=== PATIENT | male | born 1975 | race Caucasian/White ===

== ENCOUNTER → 2019-08-21 | Outpatient (CLI) | payer BC ==
--- NOTE | 2019-08-21 16:40 | Diagnostic Imaging Report ---
EXAMINATION: Magnetic resonance imaging of the left knee without intravenous contrast DATE: August 21, 2019. COMPARISON: None. INDICATION: 44-year-old male, left knee pain. TECHNIQUE: Multiplanar, multisequence non contrast enhanced MR imaging was accomplished. FINDINGS: MENISCI: There is signal in the medial meniscus not meeting strict MRI criteria for diagnosis of tear. The lateral meniscus is intact. LIGAMENTS AND TENDONS: The anterior and posterior cruciate ligaments are intact. The medial collateral ligament is intact. The iliotibial band, mid third lateral capsular ligament, fibular collateral ligament, biceps femoris tendon and conjoined tendon are intact. There is degenerative-type enthesopathy at the distal quadriceps tendon insertion. The distal quadriceps tendon and patellar tendon are intact. JOINT: The articular cartilage surfaces are intact. There is no knee joint effusion, prominent synovitis, or intra-articular body. BONE: There is unremarkable bone marrow signal. Specifically, negative for fracture, osteomyelitis, osteonecrosis, or marrow replacing process. BURSAE AND SOFT TISSUES: There is no Bakers cyst. There is fluid in the popliteus tendon sheath. IMPRESSION: 1. Negative for meniscal tear. 2. Intact anterior and posterior cruciate ligaments. Additional ligaments and tendons are intact. 3. Intact articular cartilage. No knee joint effusion. 4. No acute fracture, bone contusion, or evidence of stress reaction. Dictated by: Dictated on workstation # [id number]
== END ==
LOC: RAD 15:27
PROVIDERS: ATTEND Orthopaedic Surgery
DX: M25.562 Pain in left knee (principal)
CPT/HCPCS: 73721

== ENCOUNTER → 2021-05-28 | Outpatient (CLI) | payer BC ==
--- NOTE | 2021-05-28 12:48 | Diagnostic Imaging Report ---
PROCEDURE: US right lower extremity venous. TECHNIQUE: Multiple real-time grayscale images were obtained over the right lower extremity in various projections. Additional spectral analysis and color Doppler duplex images were also obtained. INDICATION: Right lower extremity pain and swelling. FINDINGS: There is no evidence of right lower extremity DVT. Right lower extremity deep venous system shows normal compressibility with normal response to augmentation and Valsalva. No fluid collection or mass is detected. IMPRESSION: No evidence of right lower extremity DVT. Dictated by: Dictated on workstation # [id number]
== END ==
LOC: RAD 10:15
PROVIDERS: ATTEND Nurse Practitioner Family
DX: M79.89 Other specified soft tissue disorders (principal); M79.604 Pain in right leg; Z86.718 Personal history of other venous thrombosis and embolism

== ENCOUNTER → 2021-07-23 | Outpatient (CLI) | payer BC ==
--- NOTE | 2021-07-23 16:48 | Diagnostic Imaging Report ---
INDICATION: Running injury, pain along the back of the heel in the region of the Achilles tendon. EXAMINATION: Right lower extremity MRI without contrast on 07/23/2021. FINDINGS: The Achilles tendon appears intact. There is a focal spur along the posterior aspect of the calcaneus. There is minimal fluid within the retrocalcaneal bursa, perhaps due to mild bursitis. The plantar fascia appears unremarkable. The peroneal tendons are intact. The flexor and extensor tendons are intact. There is a small amount of fluid along the course of the posterior tibial tendon and the flexor hallucis longus tendon which could be normal for this patient with a mild tenosynovitis not excluded. Correlate with symptoms. The anterior talofibular ligament is intact. The posterior talofibular ligament is intact. The anterior and posterior inferior tibiofibular ligaments are intact. The deltoid ligament is intact. The calcaneofibular ligament appears intact. The osseous structures demonstrate no acute abnormalities. The talar dome appears unremarkable. IMPRESSION: 1. Spurring along the posterior aspect of the calcaneus with no abnormality in the adjacent Achilles tendon. There may be mild bursitis of the retrocalcaneal bursa. 2. Ligaments are intact. 3. Minimal fluid along the course of the posterior tibial tendon and flexor hallucis longus tendon which could be within normal limits for patient versus mild tenosynovitis. Correlate with patient's symptoms. Dictated by: Dictated on workstation # [id number]
== END ==
LOC: RAD 08:45
PROVIDERS: ATTEND Orthopaedic Surgery
DX: M77.31 Calcaneal spur, right foot (principal); M76.61 Achilles tendinitis, right leg
CPT/HCPCS: 73721

== ENCOUNTER → 2022-04-15 | Outpatient (CLI) | payer BC ==
--- NOTE | 2022-04-15 14:29 | Diagnostic Imaging Report ---
INDICATION: Left upper extremity radiculopathy. FINDINGS: There is a degenerative retrolisthesis of C5 on 6. Straightening of the cervical lordosis. Alignment is otherwise normal. Vertebral body heights are maintained. There are no findings of abnormal thickening of the prevertebral soft tissues. There is no widening of the predental space. The odontoid view demonstrates normal relationships. There is disc space height loss with endplate spurring at C5-C6. Remaining disc spaces appear preserved. IMPRESSION: 1. Cervical degenerative disc disease at C5-C6 with endplate spurring, disc space height loss and a resultant retrolisthesis. Alignment is otherwise normal. Vertebral body heights are well-maintained. Dictated by: Dictated on workstation # [id number]
== END ==
LOC: RAD 11:02
PROVIDERS: ATTEND Family Medicine
DX: M50.122 Cervical disc disorder at C5-C6 level with radiculopathy (principal); M43.12 Spondylolisthesis, cervical region
CPT/HCPCS: 72040

== ENCOUNTER → 2022-04-17 | Outpatient (CLI) | payer BC ==
--- NOTE | 2022-04-17 12:15 | Diagnostic Imaging Report ---
CLINICAL INDICATION: Patient has right hand and arm tingling. EXAM: MRI of the cervical spine without contrast. Sequences include sagittal T2, sagittal T1, sagittal T2 fat-sat, and axial T2. COMPARISON: X-ray of the cervical spine dated 04/15/2022. FINDINGS: There is no acute cervical spine fracture. There is reversal of cervical lordosis. There is no significant Modic degenerative signal changes. Limited visualization of posterior fossa is unremarkable. There is localized deformity of the cervical cord seen at the C5-C6 level with no definite cord signal abnormality seen. There is no significant paraspinal soft tissue abnormality. C1-C2: There are degenerative spurs involving the atlantoodontoid interval anteriorly. There is no significant central canal narrowing. C2-C3: Unremarkable. C3-C4: There is a small anterior disk herniation. There are bilateral uncinate spurs with the right side worse than left. There is no significant posterior disk bulge. There is moderate right neural foramen narrowing and mild left neural foramen narrowing. There is no significant central canal stenosis. C4-C5: There is a small moderate size anterior disk herniation with spurs. There is no significant posterior disk bulge. There is no significant central spinal canal or neural foramen narrowing. C5-C6: There is grade 1 retrolisthesis C5 on C6. There is a diffuse disk bulge with moderate loss of disk space height. There are hypertrophic disk spurs posteriorly with superimposed left paracentral disk herniation. There are hypertrophic bilateral uncinate spurs with the left side more the right. There is severe central canal stenosis. There is severe left neural foramen narrowing and moderate to severe right neural foramen narrowing. C6-C7: There is no significant central canal or neural foramen narrowing. C7-T1: There is no significant central canal or neural foramen narrowing. IMPRESSION: 1: There is multilevel cervical spine degenerative disease which is worse at the C5-C6 level. 2: There is C5-C6 diffuse disk bulge with hypertrophic disk spurs and uncinate spurs. There is severe central canal stenosis with localized deformity of the cord. There is no definite cord signal abnormality. There is severe left neural foramen narrowing and moderate to severe right neural foramen narrowing. Dictated by: Dictated on workstation # [id number]
== END ==
LOC: RAD 08:11
PROVIDERS: ATTEND Family Medicine
DX: M48.02 Spinal stenosis, cervical region (principal); M46.02 Spinal enthesopathy, cervical region; M47.812 Spondylosis without myelopathy or radiculopathy, cervical region; M50.222 Other cervical disc displacement at C5-C6 level
CPT/HCPCS: 72141

== ENCOUNTER 2022-12-16 06:03 | Outpatient (CLI) | payer BC ==
[~2022-12-16] VITALS: Ht 175.3 cm; Wt 68.0 kg
[2022-12-16] MEDS ORDERED: ENLP2.5T PO (10:36)
[2022-12-16] MEDS ORDERED: AMLO2.5T2 PO (10:36)
== END 2022-12-16 10:41 | disposition home or self-care (01) ==
LOC: PREOP 06:03
PROVIDERS: ATTEND Internal Medicine
DX: Z01.818 Encounter for other preprocedural examination (principal)

== ENCOUNTER 2022-12-25 07:58 | Day surgery (SDC) | payer BC ==
--- NOTE | 2022-12-15 09:14 | HISTORY AND PHYSICAL ---
COLONOSCOPY HISTORY AND PHYSICAL HISTORY OF PRESENT ILLNESS: The patient is a 47-year-old white male referred by Dr. Swann for his first screening colonoscopy. He reports intermittently he will have some small volume bright red blood per rectum that is painless that he has attributed to hemorrhoids. He denies bowel habit change. Denies change in weight, abdominal pain. There is family history for colon cancer and one aunt diagnosed in her 70s, which was the cause of her . She also has a history of breast cancer. His mother is 80 and has no health problems. Father is in fpc secondary to dementia at the age of 80 and reports he has never had a colonoscopy. PAST MEDICAL HISTORY: Significant for hypertension for which he takes amlodipine and enalapril 2.5 mg and 20 mg respectively. He has past history of thalassemia minor that was discovered after an episode of rhabdomyolysis in 2009, felt to be due likely to a very strenuous workouts. There was no reported chronic kidney problems following this. SOCIAL HISTORY: No past smoking history. Occasional small volume alcohol intake and he works in the [employer]. PHYSICAL EXAMINATION: GENERAL: Reveals a fit-appearing white male in no acute distress. VITAL SIGNS: Blood pressure was 120/78. HEENT: Unremarkable. Sclerae nonicteric. CHEST: Clear. CARDIOVASCULAR: Reveals regular rate and rhythm without murmur, S3, or S4. ABDOMEN: Soft, supple without mass, organomegaly, or tenderness. EXTREMITIES: Revealed no cyanosis, clubbing or edema. ASSESSMENT: The patient is being set up for his first screening colonoscopy. There is a positive family history for colon cancer in a case being an aunt diagnosed in her 70s. We will see whether or not the patient actually does have evidence for hemorrhoids at the time of the procedure considering history of intermittent painless bright red blood per rectum. I thank you for the referral of this pleasant gentleman. Electronic medical record was reviewed. Prep instructions were given and questions were answered. Job ID: [id number] DocumentID: [id number] Dictated Date: 12/14/2022 12:00:13 Semiconductor Processing Technician Date: 12/14/2022 12:45:00 Dictated By: NIKA CHOW MD
[~2022-12-25] VITALS: Ht 175 cm; Wt 68.0 kg
[~2022-12-25 07:58] MED LIST: AMLO2.5T2 PO; ENLP2.5T PO
[2022-12-25] MEDS ORDERED: LACTATED RINGERS 1,000 ML IV STA (08:04)
[2022-12-25 08:10] VITALS: BP 129/95
[2022-12-25] MEDS ORDERED: LACTATED RINGERS 1,000 ML IV ONE (08:15)
--- NOTE | 2022-12-25 08:55 | Pre-Op Note & Conscious Sedat ---
Pre-Operative Progress Note Date H&P Reviewed: Dec 25, 2022 Time H&P Reviewed: 08:54 History & Physical: H&P Reviewed, Patient Examed, No changes noted Pre-Op Diagnosis: screening Moderate Sedation PreProcedure ASA Score 2 Airway Lungs Heart ASA score ASA 1: a normal healthy patient ASA 2: a patient with a mild systemic disease (mid diabetes, controlled hypertension, obesity ASA 3: a patient with a severe systemic disease that limits activity (angina, COPD, prior Myocardial infarction) ASA 4: a patient with an incapacitating disease that is a constant threat to life (CHF, renal failure) ASA 5: a moribund patient not expected to survive 24 hrs. (ruptured aneurysm) ASA 6: a declared brain- patient whose organs are being harvested. For emergent operations, add the letter E after the classification Mallampati Classification Grade 2 Sedation Plan Analgesia, Amnesia, Plan communicated to team members, Discussed options with patient/fam, Discussed risks with patient/fam The patient is an appropriate candidate to undergo the planned procedure, sedation, and anesthesia. The patient immediately re-assessed prior to indication. NIKA CHOW MD Dec 25, 2022 08:55
[2022-12-25] MEDS ORDERED: PROPOFOL INJECTION 50 ML IV ONE ×2 (09:28→10:01)
[2022-12-25] MEDS ORDERED: MIDAZOLAM 2 MG/2 ML (VERSED) VIAL ONE (09:28)
[2022-12-25 10:05] VITALS: BP 127/89
[2022-12-25 10:10] VITALS: BP 129/91
[2022-12-25 10:15] VITALS: BP 120/91
[2022-12-25 10:44] VITALS: BP 120/91
--- NOTE | 2022-12-25 11:47 | Progress Note-Post Operative ---
Post-Procedure Note Physician (s)/Logging Contractor (s) Physician NIKA CHOW MD Pre-Procedure Diagnosis Pre-Procedure Diagnosis: screening Post-Procedure Diagnosis Post-operative diagnosis: Prior to known colonoscopy digital rectal evaluation was performed. Anal sphincter tone was normal and the perianal reflexes intact. Prostate is normal in size and a nodular on digital inspection. No abnormalities were noted in the anal canal or distal rectal vault. There is a small perianal papilloma without ulceration or evidence for inflammation. The colonoscope was then inserted into the rectum and under direct visualization advanced to the cecum. The cecum was identified by an indication of the as well as cecal strap. a careful inspection was made as the colonoscope was withdrawn. Quality the prep was fair. Findings: A small roughly 5 mm perianal papilloma was noted. There were no evidence for internal or external hemorrhoids. The rectum sigmoid colon and descending colon were unremarkable. Present at the splenic flexure there was twisting of the colon so I had the apply more pressure than normal but there was no evidence to suggest volvulus. Otherwise the transverse colon was unremarkable as was the hepatic flexure ascending colon and cecum. A/P 1. Essential normal colonoscopy to cecum no evidence for neoplasia. There is 1 perianal papilloma noted from the patient's description he may be abrading it likely because of the small-volume blood on toilet paper that he sees occasionally as he has no evidence for hemorrhoids. Would advocate consideration for repeat screening colonoscopy in 10 years. I thank you for the furl this pleasant gentleman sincerely, Nika Chow MD. CC: Dr. Matheus Zhu MD. NIKA CHOW MD Dec 25, 2022 11:47
--- NOTE | 2022-12-25 12:03 | Anesthesia-General Post-Op ---
MAC Patient Condition Mental Status/LOC: Same as Preop Cardiovascular: Satisfactory Nausea/Vomiting: Absent Respiratory: Satisfactory Pain: Controlled Complications: Absent Post Op Complications Complications None Follow Up Care/Instructions Patient Instructions None needed. Anesthesiology Discharge Order Discharge Order Patient is doing well, no complaints, stable vital signs, no apparent adverse anesthesia problems. No complications reported per nursing. MISA CONDON CRNA Dec 25, 2022 12:02
== END 2022-12-25 11:04 | disposition home or self-care (01) ==
LOC: ENDO 07:58
PROVIDERS: ATTEND Internal Medicine
DX: Z12.11 Encounter for screening for malignant neoplasm of colon (principal); D12.9 Benign neoplasm of anus and anal canal; Z80.0 Family history of malignant neoplasm of digestive organs